=== PATIENT | female | born 1985 | race Caucasian/White ===

== ENCOUNTER 2022-01-21 14:03 | Emergency (ER) | payer OTHER, MEDICAID ==
[~2022-01-21] VITALS: Ht 172.7 cm; Wt 65.7 kg
[~2022-01-21 14:03] MED LIST: [UNRECOGNIZED DRUG - CODE] OR
[2022-01-21] MEDS ORDERED: diphenhdrAMINE HCL 50 MG/1 ML VL ONE (14:07)
[2022-01-21] MEDS ORDERED: methylPREDNISolone SOD SUCC 125 MG/2 ML VL ONE (14:07)
[2022-01-21] MEDS ORDERED: ONDANSETRON HCL 4 MG/2 ML VIAL IV ONE (14:15)
[2022-01-21] MEDS ORDERED: methylPREDNISolone SOD SUCC 125 MG/2 ML VL IV ONE (14:15)
[2022-01-21] MEDS ORDERED: diphenhdrAMINE HCL 50 MG/1 ML VL IV ONE (14:15)
[2022-01-21] MEDS ORDERED: EPINEPHrine HCL 1 MG/1 ML AMP IM ONE (14:15)
[2022-01-21] MEDS ORDERED: SODIUM CHLORIDE 0.9% 1,000 ML IV ONE ×2 (14:15)
[2022-01-21] MEDS ORDERED: ONDA-144 PO (14:57)
[2022-01-21] MEDS ORDERED: METH4PAK PO (14:57)
[2022-01-21 16:15] VITALS: BP 117/78
== END 2022-01-21 16:16 | disposition home or self-care (01) ==
LOC: ER 14:03
DX: T78.40XA Allergy, unspecified, initial encounter (principal); X58.XXXA Exposure to other specified factors, initial encounter
CPT/HCPCS: 96361; 96372; 96374; 96375; 99284; J0171; J1200; J2405; J2930; J7030